=== PATIENT | female | born 1935 ===

== ENCOUNTER → 2022-03-08 13:23 | Outpatient (BNVA) | payer MEDICARE, OTHER, SELFPAY | PROVIDERS: PCP Internal Medicine; Visit Provider Psychiatry & Neurology Neurology | DX: H93.19 Tinnitus, unspecified ear (principal); R42 Dizziness and giddiness; H91.90 Unspecified hearing loss, unspecified ear | CPT/HCPCS: 99202 ==

== ENCOUNTER 2022-04-21 15:01 | Outpatient (REF) | payer MEDICARE, OTHER, SELFPAY | END 2022-04-21 15:02 | disposition home or self-care (01) | LOC: HO.SH 15:01 | PROVIDERS: Visit Provider Family Medicine | DX: Z01.118 Encounter for examination of ears and hearing with other abnormal findings (principal); H90.3 Sensorineural hearing loss, bilateral; H93.11 Tinnitus, right ear | CPT/HCPCS: 92557; 92567; 92588 ==

== ENCOUNTER → 2022-11-07 14:07 | Outpatient (BNVA) | payer MEDICARE, OTHER, SELFPAY | PROVIDERS: PCP Internal Medicine; Visit Provider Psychiatry & Neurology Neurology | DX: H93.19 Tinnitus, unspecified ear (principal); H91.90 Unspecified hearing loss, unspecified ear; R42 Dizziness and giddiness | CPT/HCPCS: 99212 ==